=== PATIENT | female | born 1975 | race Caucasian/White ===

== ENCOUNTER → 2018-07-12 11:38 | Outpatient (CLI) | payer OTHER, SELFPAY ==
[2018-07-13 09:00] LABS: Cancer Antigen 125 32.9 U/mL (0.0-38.1)
== END ==
PROVIDERS: Visit Provider Obstetrics & Gynecology
DX: N83.209 Unspecified ovarian cyst, unspecified side (principal)
CPT/HCPCS: 36415; 86304

== ENCOUNTER 2018-09-17 08:30 | Inpatient (IN) | payer OTHER, SELFPAY ==
[2018-09-12 17:49] LABS: Hematocrit 43.6 % (37-47); Hemoglobin 15.1 g/dl (12.0-15.0); Mean Corp Hgb Conc 34.6 g/gl (32-36); Mean Corpuscular Hgb 30.3 pg (27.0-32.0); Mean Corpuscular Volume 87.4 fL (81-99); Mean Platelet Vol. 10.4 fl (6.2-12.0); Platelet Count 288 K/mm3 (150-450); RBC Distribution Width CV 12.3 % (11.6-14.6); RBC Distribution Width SD 38.8 fl (35.1-43.9); Red Blood Count 4.99 M/mm3 (4.2-5.4); White Blood Count 9.7 K/mm3 (4.4-11.0)
[2018-09-12 17:54] LABS: Scan Indicated on CBC? Y/N NO
[2018-09-12 18:04] LABS: International Normalized Ratio 1.1; Prothrombin Time (Protime)PT. 14.5 SECONDS (11.7-14.9)
[2018-09-12 18:05] LABS: Partial Thromboplast Time 30.6 Seconds (24.1-36.2)
[2018-09-12 18:20] LABS: Creatinine, Serum 0.64 mg/dL (0.55-1.02); EST Glomerular Filtration Rate 106 mL/min (>60); Est Glom Filt Rate - Afr Amer 128 mL/min (>60)
[2018-09-12 18:26] LABS: Pregnancy, Serum, hCG Quali. NEGATIVE Negative (0-9 Nonpreg)
[2018-09-17] VITALS (12 sets, daily range): BP systolic 106–134; BP diastolic 52–83; PULSE 69–120; RESP 16–18; TEMP 36.4–37; O2SAT 94–100; BMI 38.5; BMI 38.4
--- NOTE | 2018-09-17 | HYST_PTH ---
PATIENT: NIKIA MAK LOC: MS3 U#:[id number] AGE/SX: 43/F ROOM: MS318 RE09/17/[address]: Dr. Kaiden Dan MD : 1975 BED: 1 DIS: 09/19/2018 SPEC #: [id number] RECD: 09/17/18 14:43 STATUS: BARBARA RETati #: [id number] ANAM: 09/17/18 00:[address]: Kaiden Dan DEPT: SURGICAL PATHOLOGY RECD BY: Daryl Ruiz ENTERED: 09/17/18 14:44 SP TYPE: HYSTERECT OTHR DR: Dr. Kaiden Sweet MD Tissues: Uterus, NOS Procedures: Surgery Specimen Level V HEADER OPERATION: Total abdominal hysterectomy, bilateral salpingectomy, ERAS PRE-OP DIAGNOSIS: Leiomyoma TISSUE SUBMITTED: Uterus, cervix, bilateral fallopian tubes, fibroid MICROSCOPIC DIAGNOSIS Uterus, cervix, bilateral fallopian tubes and fibroid, total abdominal hysterectomy and bilateral salpingectomy: Cervix - chronic cystic cervicitis. Endometrium - proliferative endometrium. Myometrium - leiomyomas, intramural and subserosal (largest measuring 18 cm in greatest dimension). Bilateral fallopian tubes - no pathologic diagnosis. See comment. SJ:jessie 09/18/18 COMMENT The largest intramural leiomyoma also show focal calcification. The detached leiomyoma shows focal area of hyalinization. MICROSCOPIC DESCRIPTION Slides are reviewed. GROSS DESCRIPTION Received in fixative is one container labeled with the patient's name and designated uterus, cervix, bilateral fallopian tubes and fibroid. The specimen consists of a hysterectomy specimen consisting of uterus with cervix, attached bilateral fallopian tubes and detached nodular mass. The uterus with cervix and detached nodular mass weighs in aggregate 3150 gm. The serosal surface is hennessy, glistening and a few subserosal nodules are noted. The ectocervical mucosa is unremarkable. The external os is oval in contour. The uterus with cervix measures 18 cm transversely, 26 cm from fundus to cervix and 11 cm from anterior to posterior cervix. The endocervical canal measures 6 cm in length and the endocervical mucosa is hennessy, glistening and unremarkable. The uterus is distorted so anterior-posterior surface cannot be properly oriented. The endometrial cavity is compressed to one side and measures 7?cm in length and up to 3 cm in width. The endometrium is hennessy, glistening and focally congested without any mass lesion and measures 0.1 cm in thickness. Sections of the uterine wall reveal multiple intramural and subserosal nodular masses. The largest intramural mass measures 13 cm in greatest dimension. The largest subserosal mass measures 2.5 cm in greatest dimension. Also present in the container is a detached nodular mass measuring 18 cm in greatest dimension. The uninvolved uterine wall measures up to 4 cm in thickness. Sections of these masses reveal hennessy whorled cut surfaces without areas of hemorrhage, necrosis or cystic degeneration. Sections of the largest nodular mass reveal focally edematous and smooth cut surfaces. The fallopian tubes could not be oriented due to distortion of uterus. One of the fallopian tube measures 8 cm in length and 0.7 cm in diameter. The fimbrial end is identified. Sections reveal unremarkable cut surfaces. The second fallopian tube measures 8 cm in length and 0.5 cm in diameter. The fimbrial end is identified. Sections reveal unremarkable cut surfaces. Time Buyer sections are submitted in 17 cassettes as follows: 1 & 2 - cervix, 3-6 - uterine wall including endometrium, 7 - smaller subserosal nodular masses, 8-10 - largest intramural mass, 11-15 - detached nodular mass, 16 & 17 - bilateral fallopian tube with each cassette containing one fallopian tube. / JOEY:jessie 09/17/18 TC:1 CPT: 94856
[2018-09-17 08:56] LABS: Internal QC Validated? YES +Cl - CLEAR BKGD; Pregnancy, Urine Negative Negative
[2018-09-17] MEDS: Gabapentin 600 MG Tablet PO (09:22)
[2018-09-17] MEDS: Acetaminophen 500 MG Tablet 1000 MG PO ×2 (09:22→16:27)
[2018-09-17] MEDS: Scopolamine 1mg/72hr Patch 1 PATCH TRANSDERM. (09:23)
[2018-09-17 09:35] LABS: Bedside Glucose 76 mg/dL (70-110)
[2018-09-17] MEDS: Lidocaine/D5W 2,000 MG/250 ML IV.SOLN 30.51 MG IV (10:30)
--- NOTE | 2018-09-17 10:32 | OP.PCM_ITS ---
Report of Operation Date of Procedure: 09/17/18 Pre-Operative Diagnosis: Large Uterine Fibroids Post-Operative Diagnosis: Large Uterine Fibroids Surgery/Procedure Performed:: Total Abdominal Hysterectomy and Bilateral Salpingectomy Description of Surgical Findings:: 30 cm fibroid uterus with normal-appearing fallopian tubes and ovaries. conference services manager: Lefty Campbell Type of Anesthesia:: General Anesthesiologist: Juan Ruelas Specimen's removed: Uterus and bilateral fallopian tubes Drains: Asif to straight drain Estimated Blood Loss (mL): 400 cc Fluids Replaced: Crystalloid Description of Procedure: Indications: This is a 43-year-old patient G0who his been having problems with large uterine fibroids. Given this the patient desires that we proceed with the above procedure. She has been counseled regarding the risk and indications of this procedure including the possibility of bleeding, infection, and injury to surrounding structures such as bowel bladder. All questions were answered. Procedure: Patient was taken to the operating room where after induction of general anesthesia she was prepped and draped in the usual sterile fashion. A Asif catheter was placed. The abdomen was entered through a vertical incision and peritoneal cavity was entered bluntly. Extremely large uterine fibroids were encountered. There was a pedunculated fibroid that was approximately 15 cm off the fundus of the uterus. The base was ligated with 0 Vicryl suture and this fibroid was removed over the top of the lower uterus and fibroid. Round ligaments were identified and ligated with 0 Vicryl suture. Infundibulopelvic ligaments were ligated. A bladder flap was developed and progressive bites were then taken down on either side of the uterine cervix ligating each pedicle with 0 Vicryl suture. Final bites across the vaginal cuff incorporated the uterosacral ligaments into the vaginal cuff using 0 Vicryl suture and two [id number]-[id number]-lmiil sutures were placed across the vaginal cuff. Potter retractor was placed. Vaginal cuff and pelvic sidewall pedicles were oversewn where necessary to achieve hemostasis. Peristalsis of the right ureter was noted. Pelvis was copiously irrigated removing all clot. FloSeal was used across the vaginal cuff to help with some oozing in this area. Noam retractor was removed and rectus abdominis muscles were reapproximated in the midline with running 0 Vicryl suture. 0 PDS strata fix was used to close the fascia in a running fashion and subcutaneous tissue was copiously irrigated with saline solution before closing with 3-0 Vicryl suture. 4-0 Vicryl interrupted sutures were also placed to reapproximate the skin edges and closer vicinity. 3-0 Monocryl suture was then used in running fashion to reapproximate skin edges and Steri-Strips placed across the incision. Patient tolerated the procedure well was taken to recovery room in satisfactory condition; sponge instrument and needle counts were all reportedly correct. Estimated blood loss for the case was 250 cc. Cefotan 2 g IV was given prior to beginning the operative procedure. There were no apparent complications of the surgery. Specimen to pathology was uterus and bilateral fallopian tubes. Grafts/Implants Used: None - Complications None - Admit VTE Documentation VTE Present on Admission: Yes VTE Mechan Device Prophylaxis: SCD's VTE Pharm Prophylaxis ordered?: Yes
--- NOTE | 2018-09-17 10:33 | DCINST_ITS ---
Discharge Diet: No Restrictions Discharge Activity: Return to Normal Activity - do what you feel comfortable, but do not over do it. You may climb stairs, just use caution and hold the railing., May Not Drive - for a few days or while taking narcotic pain medications., May Shower, May Take a Tub Bath May resume sexual activity in: 6 weeks - nothing in the vagina. Lifting Restrictions: 25 pounds for 6 weeks. Call your doctor if your incision/area has: Continuous Slow Oozing, Sudden Increased Bleeding, Increased Pain/ Swelling, Increased Redness, Foul Smelling Discharge Call your doctor if you observe: Fever of 101 or Higher, Inability to urinate, Inability to have a bowel movement, Using more than one pad per hour, - - Some vaginal bleeding may be noted for up to 4-8 weeks. Cleanse incision/area with: - - Let the soapy water run over your incision, rinse and pat dry. Additional Dressing/Incision Instructions:: The white strips (Steri Strips) on your incision will fall off on their own. Allergies/Adverse Reactions: Allergies Penicillins [PCN] Allergy (Verified 09/10/18 11:02) Rash Medications to take at Discharge Cholecalciferol (Vitamin D3) [Vitamin D3] 5,000 unit PO QODAY 09/10/18 Docusate Sodium [Colace] 100 mg PO BID PRN PRN #60 cap 09/17/18 Oxycodone [Oxyir] 5 mg PO Q6H PRN PRN 7 Days #20 tab 09/17/18 The following prescriptions were given: Oxycodone [Oxyir] 5 mg PO Q6H PRN PRN 7 Days #20 tab PRN Reason: Severe Pain (-08/08) Docusate Sodium [Colace] 100 mg PO BID PRN PRN #60 cap PRN Reason: Constipation Primary Care Physician: Kaiden Sweet [Primary Care Provider] - Test Results: Test results from this visit will be discussed in further detail at your follow- up appointment, if applicable. Please Follow Up With: Kaiden Dan MD - [phone] When: in 2 weeks, please call to make an appointment.
[2018-09-17] MEDS: Ketorolac 30 MG/ML Syringe IV ×2 (12:04→21:27)
[2018-09-17] MEDS: Dextrose 5%-Lactated Ringers 1,000 ML 150 ML IV (18:14)
[2018-09-17] MEDS: Enoxaparin 30 MG/0.3 ML Syringe SC (18:15)
[2018-09-17] MEDS: oxyCODONE 5 MG Tablet PO (18:18)
[2018-09-17] MEDS: Ondansetron 4 MG/2 ML Vial IV (18:19)
[2018-09-18] MEDS: Dextrose 5%-Lactated Ringers 1,000 ML 150 ML IV (01:20)
[2018-09-18 03:15] VITALS: BP 119/57; PULSE 115; RESP 14; TEMP 36.9; O2SAT 92
[2018-09-18] MEDS: Ketorolac 30 MG/ML Syringe IV ×4 (03:26→20:14)
[2018-09-18 06:52] LABS: Hematocrit 35.4 % (37-47); Hemoglobin 11.7 g/dl (12.0-15.0); Mean Corp Hgb Conc 33.1 g/gl (32-36); Mean Corpuscular Hgb 29.8 pg (27.0-32.0); Mean Corpuscular Volume 90.1 fL (81-99); Mean Platelet Vol. 10.9 fl (6.2-12.0); Platelet Count 255 K/mm3 (150-450); RBC Distribution Width CV 12.2 % (11.6-14.6); Red Blood Count 3.93 M/mm3 (4.2-5.4); White Blood Count 12.7 K/mm3 (4.4-11.0)
[2018-09-18 06:59] LABS: Scan Indicated on CBC? Y/N NO
[2018-09-18 07:07] LABS: Creatinine, Serum 0.79 mg/dL (0.55-1.02); EST Glomerular Filtration Rate 84 mL/min (>60); Est Glom Filt Rate - Afr Amer 101 mL/min (>60); Estimated Creatinine Clearance 77.66 ml/min
[2018-09-18 08:33] VITALS: BP 126/67; PULSE 108; RESP 18; TEMP 37.1; O2SAT 96
[2018-09-18 08:42] VITALS: O2SAT 95
--- NOTE | 2018-09-18 08:58 | PCM.PN.OB ---
Subjective: Patient without complaints. Tolerating diet well. Denies any orthostatic changes. Minimal vaginal bleeding. Nausea resolving. Denies flatus. - Physical Exam Vital Signs Temp Pulse Resp BP Pulse Ox 98.7 F 108 H 18 126/67 H 95 09/18/18 08:33 09/18/18 08:33 09/18/18 08:33 09/18/18 08:33 09/18/18 08:42 Oxygen Flow Rate (L/min) 6 Oxygen Delivery Method Room Air Weight: 224 lb Body Mass Index (BMI) 38.4 Intake and Output for Last 24 Hours 09/16/18 09/17/18 09/18/18 23:59 23:59 23:59 Intake Total 3010 / 3010 2544 / 2544 Output Total 490 / 490 4600 / 4600 Balance 2520 / 2520 -2055 / -2055 Laboratory Tests Past 24 Hrs 09/18/18 09/18/18 06:05 06:05 WBC 12.7 H RBC 3.93 L Hgb 11.7 L Hct 35.4 L MCV 90.1 MCH 29.8 MCHC 33.1 RDW 12.2 RDW Differential 39.0 Plt Count 255 MPV 10.9 Creatinine 0.79 Estim Creat Clear Calc 77.66 Est GFR (MDRD) Af Amer 101 Est GFR (MDRD) Non-Af 84 POC Glucose 09/17/18 09:19 POC Glucose 76 Wound is clean, dry, intact. Good urine output. Tachycardia resolving. Hemoglobin and creatinine okay. Medical Necessity - Tobacco Use Smoking Status: Never smoker Assessment/Plan Doing well postoperative day #1 status post ANAHI/bilateral salpingectomy. Continuing present care.
[2018-09-18] MEDS: oxyCODONE 5 MG Tablet PO (11:42)
[2018-09-18] MEDS: 0.9% NaCl Peripheral Flush Adult/Peds IV (15:16)
[2018-09-18 15:18] VITALS: BP 146/91; PULSE 101; RESP 18; TEMP 36.7; O2SAT 98
--- NOTE | 2018-09-18 16:25 | CASEMGMT ---
KALIE RAY INITIAL ASSESSMENT D/C PLAN: Home Face to Face with patient for initial transition planning/care coordination assessment. KALIE RAY introduced self and role at [facility]. Pt sitting up in recliner chair visiting with her mother in the room. Pt agreeable to assessment and all questions answered approrpriately. Care providers, pharmacy, and demographics verified. PCP: Kee Specialists: none Preferred Pharmacy: [facility], [facility] Retail on day of discharge only Insurance: [employer] Prescription Benefit: Yes Living Will/HPOA: Does not have either. Declines further information. LNOK: Mother Living Arrangements: Lives alone in one-story apartment. No stairs to enter. Independent with all ADL's, care, and home mgmt tasks. Transportation: Pt drives. Mother and brothers able to assist if needed. DME: Denies using any DME and denies needs. HHC: No needs identified. Pt wishes to return home. Denies discharge planning needs and denies having any questions. Advised to ask for CM if has any questions/concerns/needs. Pt voices understanding. CM to follow for any further discharge planning needs that may arise. Abelino PEREZ RN, CM
[2018-09-18 21:57] VITALS: BP 129/57; PULSE 108; RESP 20; TEMP 36.8; O2SAT 94
[2018-09-19 03:16] VITALS: BP 127/75; PULSE 106; RESP 18; TEMP 37.3; O2SAT 94
[2018-09-19] MEDS: Ketorolac 30 MG/ML Syringe IV (03:19)
[2018-09-19] MEDS: 0.9% NaCl Peripheral Flush Adult/Peds IV (03:20)
[2018-09-19 07:45] VITALS: O2SAT 95
[2018-09-19 08:52] VITALS: BP 124/86; PULSE 96; RESP 16; TEMP 37.1; O2SAT 93
[2018-09-19] MEDS: Loratadine 10 MG Tablet PO (09:05)
[2018-09-19] MEDS: Ketorolac 10 MG Tablet PO (09:05)
--- NOTE | 2018-09-19 09:49 | PCM.PN.OB ---
Subjective: Patient without complaints. Tolerating diet well. Pain well controlled. Minimal vaginal bleeding. Positive flatus. Ready to go home. - Physical Exam Vital Signs Temp Pulse Resp BP Pulse Ox 98.7 F 96 16 124/86 H 93 09/19/18 08:52 09/19/18 08:52 09/19/18 08:52 09/19/18 08:52 09/19/18 08:52 Oxygen Flow Rate (L/min) 6 Oxygen Delivery Method Room Air Weight: 224 lb Body Mass Index (BMI) 38.4 Intake and Output for Last 24 Hours 09/17/18 09/18/18 09/19/18 23:59 23:59 23:59 Intake Total 3010 / 3010 3524 / 3524 600 / 600 Output Total 490 / 490 6700 / 6700 1800 / 1800 Balance 2520 / 2520 -3176 / -3176 -1200 / -1200 Wound is clean, dry, intact. Good urine output. Medical Necessity - Tobacco Use Smoking Status: Never smoker Assessment/Plan Doing well postoperative day #2 status post total abdominal hysterectomy and bilateral salpingectomy. Will release to home with routine instructions.
== END 2018-09-19 11:48 | disposition home or self-care (01) | DRG 743 ==
PROVIDERS: Anesthesiology; Admitting Provider Obstetrics & Gynecology; Family Provider Family Medicine; PCP Family Medicine; Referring Provider Obstetrics & Gynecology; Visit Provider Obstetrics & Gynecology
PROC: 0UT90ZZ Resection of Uterus, Open Approach (ICD-10-PCS; principal; 2018-09-17 10:20)
DX: D25.9 Leiomyoma of uterus, unspecified (principal)
CPT/HCPCS: 36415; 81025; 82565; 82962; 84703; 85027; 85610; 85730; 86850; 86900; 88307; J7050; J7120; A4216; J2405

== ENCOUNTER → 2024-05-13 | Outpatient (CLI) | payer OTHER, SELFPAY ==
--- NOTE | 2024-05-13 09:54 | BI_ITS ---
MAMMOGRAPHY - BILATERAL SCREENING REASON FOR EXAM: Female, 49 years old. Routine annual screening examination. PERTINENT HISTORY: Non-contributory. TECHNIQUE: Digital bilateral breast thao (3D mammographic acquisition) in the CC and MLO projections. 2-D mediolateral oblique (MLO) and craniocaudad (CC) views of both breasts were obtained. CAD: Full Field Digital Mammography with Computer Added Detection was performed. COMPARISON: Comparison is made with prior outside examination dated May 08, 2018. FINDINGS: Breast Composition: The breasts are extremely dense, which lowers the sensitivity of mammography. There are no dominant masses or suspicious calcifications. Stable small benign appearing bilateral axillary lymph nodes. No other significant abnormalities are identified. There has been no significant change since the prior study. BI/SCRN MAMM (CAD)W/THAO BILAT IMPRESSION: Stable bilateral screening mammogram. Yearly follow-up mammogram recommended. (A) ASSESSMENT CATEGORY: BIRADS Category 2: Benign. A letter regarding these results will be sent to the patient by the facility within 30 days. Approximately 10% of breast cancers are not detected by mammography. A normal mammogram should not delay biopsy of a clinically suspicious abnormality. [id number] Electronically Signed: Bk Tello MD at 10:56 EDT ,
== END | disposition home or self-care (01) ==
LOC: OPBI 09:53
PROVIDERS: PCP Family Medicine
DX: Z12.31 Encounter for screening mammogram for malignant neoplasm of breast (principal)
CPT/HCPCS: 77063; 77067

== ENCOUNTER 2024-05-29 06:43 | Day surgery (SDC) | payer OTHER, SELFPAY ==
[2024-05-29] VITALS (8 sets, daily range): BP systolic 105–145; BP diastolic 68–81; PULSE 76–97; RESP 16–20; TEMP 36.2–36.3; O2SAT 94–96; BMI 45.3
[2024-05-29] MEDS: Lactated Ringers 1,000 ML 15 ML IV (07:19)
--- NOTE | 2024-05-29 07:39 | PRE.ANES_ITS ---
ASA Classification* ASA Classification ASA Classification: 2 Assessment & Plan Anesthesia* Anesthesia Assessment Anesthesia Assessment: Discussed sedation and/or anesthesia options, risks, benefits, and alternatives with patient/parents/legal guardian/POA. Questions invited. The patient/parents/legal guardian/POA seems to understand and agrees to proceed with anesthesia plan. Reviewed the physical assessment, medical history, allergy history and patient home medications list prior to surgery/procedure/anesthetic and documented any changes. Performed airway and anesthesia risk assessments. Anesthesia Type Anesthesia Type: MAC Anesthesia Focused Assessment* Temperature: 97.4 F Pulse Rate: 97 Blood Pressure: 145/81 Respiratory Rate: 20 Pulse Ox: 96 Airway Assessment Mouth opens: >3 cm Mallampati Score: II Focused Labs Anesthesia Preop lab: CBC WBC 12.7 K/mm3 (4.4-11.0) H 09/18/18 06:05 RBC 3.93 M/mm3 (4.2-5.4) L 09/18/18 06:05 Hgb 11.7 g/dl (12.0-15.0) L 09/18/18 06:05 Hct 35.4 % (37-47) L 09/18/18 06:05 Plt Count 255 K/mm3 (150-450) 09/18/18 06:05 CHEMISTRY Creatinine 0.79 mg/dL (0.55-1.02) 09/18/18 06:05 POC Glucose 76 mg/dL (70-110) 09/17/18 09:19 COAG PT 14.5 SECONDS (11.7-14.9) 09/12/18 17:34 Urine Test Negative Negative 09/17/18 08:45 Pre-Assessment Diagnosis/Proposed Procedure Planned Operative Procedure(s): COLONOSCOPY-OA Anesthesia History 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 When Was Last Pacemaker Check QUESTION #4 FULL TEXT: You/Your Family Experience fever (hyperthermia) with Anesthesia Last Oral Intake Last Oral intake: Last Oral Intake NPO since 04:00 05/29/24 07:11 Meds taken in AM with sips of No 05/29/24 07:11 water? Meds patient instructed to take am of surgery PONV PONV - cambering machine operator: PONV - cambering machine operator Female Yes 05/27/24 09:30 HX of Motion Sickness No 05/27/24 09:30 HX of N/V After Surgery No 05/27/24 09:30 Non-Smoker Yes 05/27/24 09:30 Duration of Surgery greater No 05/27/24 09:30 than 60 minutes Number of Risk Factors 2 05/27/24 09:30 PONV Score Moderate Risk 05/27/24 09:30 Height & Weight Height & Weight: Anesthesia: Height & Weight Height 5 ft 4 in 05/29/24 07:11 Weight: 120 kg 05/29/24 07:11 Body Mass Index (BMI) 45.3 05/29/24 07:11 Respiratory Assessment Respiratory Assessment - cambering machine operator: Respiratory Tract Infection Hx - cambering machine operator Hx Respiratory Tract Infection No 05/27/24 09:30 STOP Sleep Apnea STOP Sleep Apnea - cambering machine operator: STOP Sleep Apnea - cambering machine operator Hx Hypertension No 05/27/24 09:30 Hx Sleep Apnea No 05/27/24 09:30 CPAP BIPAP Do you snore loudly (louder No 05/27/24 09:30 than talking or can be heard Do you often feel tired/ No 05/27/24 09:30 fatigued/ sleepy during daytime? Has anyone observed you stop No 05/27/24 09:30 breathing during sleep? STOP Results Negative 05/27/24 09:30 QUESTION #5 FULL TEXT : Do you snore loudly (louder than talking or can be heard through closed doors)? 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 Specify any problems Hx of Preganancy in last 3 No 05/27/24 09:30 Months Nurse Filling Out Transfusion VCHRISTIN 05/27/24 09:30 & Questions: Date: 05/27/24 05/27/24 09:30 Time: 09:30 05/27/24 09:30 Patient unable to answer at this time (ie. confused, unrespo /Reproduction History /Reproductive History - cambering machine operator: /Reproductive Hx- cambering machine operator Hx Now Gestational Age (in weeks): EDC: Hx Hx Para Hx Section SAB Active Medications Active Medications: Current Medications Generic Name Dose Route Start Last Admin Trade Name Freq PRN Reason Stop Dose Admin Lactated Ringer's 1,000 mls @ 15 mls/hr 05/29/24 07:00 05/29/24 07:19 IV 15 mls/hr .Q48H SITA Administration PFSH Medical History Wears glasses Post-menopausal Non-smoker History of irregular heartbeat Hx of lymphoma Family history of malignant neoplasm of colon in relative diagnosed when younger than 50 years of age Home Medications ?Medication ?Instructions ?Recorded ?Last Taken ?Type cholecalciferol (vitamin D3) 125 5,000 unit PO DAILY SUPPLEMENT 09/10/18 Unknown History mcg (5,000 unit) capsule ascorbate calcium (vitamin C) 500 500 mg PO DAILY 05/01/24 Unknown History mg tablet cetirizine 10 mg tablet 10 mg PO PRN PRN allergy symptoms 05/01/24 Unknown History fluticasone propionate 50 2 spray intranasal DAILY 05/01/24 Unknown History mcg/actuation nasal spray,suspension (Flonase Allergy Relief) lactobacillus comb no.10 20 20,000 mmu cells PO DAILY 05/01/24 Unknown History billion cell capsule (Probiotic) magnesium oxide 400 mg PO DAILY 05/01/24 Unknown History mecobalamin (vitamin B12) 1,000 1,000 mcg PO DAILY 05/01/24 Unknown History mcg chewable tablet Allergy/AdvReac Type Severity Reaction Status Date / Time Penicillins (PCN) Allergy Rash Verified 05/29/24 07:08 Family History Brother Colon cancer Mother Aortic valve replaced Heart disease Father Hypertension Surgical History Hx of hysterectomy Social History 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
--- NOTE | 2024-05-29 08:00 | COLBX_PTH ---
PATIENT: NIKIA MAK LOC: EN U#:[id number] AGE/SX: 49/F ROOM: RE05/29/[address]: Dr. Scar Johnson DO : 1975 BED: DIS: 05/29/2024 SPEC #: [id number] RECD: 05/29/24 10:42 STATUS: BARBARA RETati #: [id number] ANAM: 05/29/24 08:[address]: Scar Johnson DEPT: SURGICAL PATHOLOGY RECD BY: Amira Swanson ENTERED: 05/29/24 11:44 SP TYPE: COLON BX OTHR DR: MAYCO Mc Tissues: A - Cecum, NOS B - COLON BIOPSY C - Descending colon Procedures: Surgery Specimen Level IV HEADER OPERATION: Colonoscopy, biopsy, polypectomy PRE-OP DIAGNOSIS: Encounter for screening for malignant neoplasm of colon TISSUE SUBMITTED: A- Cecal biopsy, B- Splenic flexure polyp, C- Descending polyp MICROSCOPIC DIAGNOSIS A. Cecum, biopsy: Mild acute enteritis. Fibrin purulent material. See comment. B. Colonic polyp at splenic flexure, biopsy: Polypoid fragment of benign colonic mucosa. See comment. C. Descending colon polyp, biopsy: Fragments of tubular adenoma. LEEANN/ 05/30/2024 COMMENT A. Clinical correlation is suggested. B. Neither hyperplastic nor adenomatous change is identified. Clinical correlation is suggested. MICROSCOPIC DESCRIPTION Slides are reviewed. GROSS DESCRIPTION A. Received in fixative is one container labeled with the patient's name and designated Cecal biopsy. The specimen consists of multiple irregular fragments of light hennessy soft tissue that in aggregate measure 1.0 x 0.3 x 0.1 cm. The specimen is totally submitted in one cassette. B. Received in fixative is one container labeled with the patient's name and designated Splenic flexure polyp. The specimen consists of multiple irregular fragments of light hennessy soft tissue that in aggregate measure 0.5 x 0.2 x 0.1 cm. The specimen is totally submitted in one cassette. C. Received in fixative is one container labeled with the patient's name and designated Descending polyp. The specimen consists of multiple irregular fragments of light hennessy soft tissue that in aggregate measure 0.7 x 0.5 x 0.1 cm. The specimen is totally submitted in one cassette. LEEANN/ 05/29/2024 TC:5 CPT:54587h0
--- NOTE | 2024-05-29 08:00 | COLBX_PTH ---
PATIENT: NIKIA MAK LOC: EN U#:[id number] AGE/SX: 49/F ROOM: RE05/29/[address]: Dr. Scar Johnson DO : 1975 BED: DIS: 05/29/2024 SPEC #: [id number] RECD: 05/29/24 10:42 STATUS: BARBARA RETati #: [id number] ANAM: 05/29/24 08:[address]: Scar Johnson DEPT: SURGICAL PATHOLOGY RECD BY: Amira Swanson ENTERED: 05/29/24 11:44 SP TYPE: COLON BX OTHR DR: MAYCO Mc Tissues: A - Cecum, NOS B - COLON BIOPSY C - Descending colon Procedures: Surgery Specimen Level IV HEADER OPERATION: Colonoscopy, biopsy, polypectomy PRE-OP DIAGNOSIS: Encounter for screening for malignant neoplasm of colon TISSUE SUBMITTED: A- Cecal biopsy, B- Splenic flexure polyp, C- Descending polyp MICROSCOPIC DIAGNOSIS A. Cecum, biopsy: Mild acute interitis. Fibrin purulent material. See comment. B. Colonic polyp at splenic flexure, biopsy: Polypoid fragment of benign colonic mucosa. See comment. C. Descending colon polyp, biopsy: Fragments of tubular adenoma. LEEANN/ 05/30/2024 COMMENT A. Clinical correlation is suggested. B. Neither hyperplastic nor adenomatous change is identified. Clinical correlation is suggested. MICROSCOPIC DESCRIPTION Slides are reviewed. GROSS DESCRIPTION A. Received in fixative is one container labeled with the patient's name and designated Cecal biopsy. The specimen consists of multiple irregular fragments of light hennessy soft tissue that in aggregate measure 1.0 x 0.3 x 0.1 cm. The specimen is totally submitted in one cassette. B. Received in fixative is one container labeled with the patient's name and designated Splenic flexure polyp. The specimen consists of multiple irregular fragments of light hennessy soft tissue that in aggregate measure 0.5 x 0.2 x 0.1 cm. The specimen is totally submitted in one cassette. C. Received in fixative is one container labeled with the patient's name and designated Descending polyp. The specimen consists of multiple irregular fragments of light hennessy soft tissue that in aggregate measure 0.7 x 0.5 x 0.1 cm. The specimen is totally submitted in one cassette. LEEANN/ 05/29/2024 TC:5 CPT:81371e9
--- NOTE | 2024-05-29 08:10 | HP.PCM_ITS ---
[facility] - General General Date of Admission: 05/29/24 Date of Service: 05/29/24 Chief Complaint: Screening colonoscopy [facility] Narrative NIKIA MAK, is a 49 F who presents today for screening colonoscopy. She does not have any abdominal pain. She denied having cramping. She does not have any chest pain or shortness of breath. She has a allergy to penicillin. She does not take any medicines on a daily basis. She has never had a colo noscopy in the past. [facility] Medical History Wears glasses Post-menopausal Non-smoker History of irregular heartbeat Hx of lymphoma Family history of malignant neoplasm of colon in relative diagnosed when younger than 50 years of age Home Medications ?Medication ?Instructions ?Recorded ?Last Taken ?Type cholecalciferol (vitamin D3) 125 5,000 unit PO DAILY SUPPLEMENT 09/10/18 Unknown History mcg (5,000 unit) capsule ascorbate calcium (vitamin C) 500 500 mg PO DAILY 05/01/24 Unknown History mg tablet cetirizine 10 mg tablet 10 mg PO PRN PRN allergy symptoms 05/01/24 Unknown History fluticasone propionate 50 2 spray intranasal DAILY 05/01/24 Unknown History mcg/actuation nasal spray,suspension (Flonase Allergy Relief) lactobacillus comb no.10 20 20,000 mmu cells PO DAILY 05/01/24 Unknown History billion cell capsule (Probiotic) magnesium oxide 400 mg PO DAILY 05/01/24 Unknown History mecobalamin (vitamin B12) 1,000 1,000 mcg PO DAILY 05/01/24 Unknown History mcg chewable tablet Allergy/AdvReac Type Severity Reaction Status Date / Time Penicillins (PCN) Allergy Rash Verified 05/29/24 07:08 Family History Brother Colon cancer Mother Aortic valve replaced Heart disease Father Hypertension Surgical History Hx of hysterectomy Social History current occupational status: employed 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 Smoking Status: Never smoker alcohol intake: current alcohol intake frequency: holidays/special occasions only substance use type: does not use ROS Review of Systems ROS Unobtainable: other Constitutional Constitutional: Denies fatigue, fever(s), poor appetite, weight gain or weight loss ENT HEENT: Denies mouth lesions Cardiovascular Cardiovascular: Denies abdominal bloating, abdominal edema or abdominal pain Respiratory/Chest Respiratory/Chest: Denies change in mental status, change in phlegm color, chest congestion or chest tightness Gastrointestinal Gastrointestinal: Denies belching, bloating, change in bowel habits, change in stool character, chewing difficulty, coffee ground emesis, constipation, cramping, diarrhea, dyspepsia, dysphagia, early satiety, excessive flatus, fecal incontinence, heartburn, hematemesis, hematochezia, hemorrhoids, loose stools, melena, nausea, odynophagia, rectal bleeding, tenesmus, vomiting or weight changes Genitourinary Genitourinary: Denies abdominal discomfort, burning urination or itching Musculoskeletal Musculoskeletal: Reports as per HPI; Denies muscle weakness or myalgias Integumentary Integumentary: Denies jaundice Neurologic Neurologic: Denies lack of coordination or weakness Psychiatric Psychiatric: Denies confusion, depression, memory loss, mood swings, paranoia or suicidal ideation Endocrine Endocrinology: Denies systems reviewed and no addt'l complaints, except as documented Hematologic/Lymphatic Hematologic/Lymphatic: Denies anemia, easy bleeding, easy bruising or lymphadenopathy Allergic/Immunologic Allergic/Immunologic: Denies systems reviewed and no addt'l complaints, except as documented Vital Signs Vital Signs Vital Signs: 05/29/24 07:10 05/29/24 07:11 05/29/24 07:39 Temperature 97.4 F L 97.4 F L Temperature Source Temporal Pulse Rate 97 97 Respiratory Rate 20 H 20 H Respiratory Pattern Normal Blood Pressure 145/81 H 145/81 H Blood Pressure Mean 102 Blood Pressure Source Monitor Blood Pressure Position Semi-Fowlers Blood Pressure Location Left Arm Pulse Ox 96 96 Oxygen Delivery Method Room Air Weight Weight: 264 lb 8.875 oz Body Mass Index (BMI) 45.3 Physical Exam Const alert General Appearance: cooperative Orientation / Consciousness: oriented to person HEENT hearing grossly normal bilaterally Head and Scalp: normal to inspection Face and Sinus: face symmetric Nose: external nose normal Mouth: oral and palatal mucosa normal Eyes conjunctivae normal General Eye: normal appearance of both eyes Neck full ROM General: normal visual inspection Lymph Lymphatic: no lymphadenopathy noted Chest inspection of chest normal and palpation of chest normal Chest: symmetrical chest wall rise Resp normal respiratory effort Effort and Inspection: able to speak in complete sentences Cardio regular rate GI non-distended Percussion: normal to percussion Rectal Exam: deferred Neuro Speech: speech normal Gait (Neuro): normal gait Assessment & Plan Assessment/Plan (1) Encounter for screening for malignant neoplasm of colon: PLAN: 49-year-old will undergo screening colonoscopy. She was explained alternatives, risk, benefits including not withstanding bleeding, infection, sepsis, perforation, need for emergent urgent . She will have an ASA of 3.
--- NOTE | 2024-05-29 08:45 | PCM.POST.ANE ---
Anesthesia: Postop Eval I Current Vital Signs Temperature: 97.2 F Pulse Rate: 87 Blood Pressure: 105/68 Respiratory Rate: 16 Pulse Ox: 96 Oxygen Delivery Method: Room Air Assessment Airway patent: Yes Spontaneous unlabored respirations: Yes Mental status: Awake and Calm nausea: No Vomiting: No Anesthesia Complication: No Fluid Hydration Crystalloid volume administer (ml): 600 Total IV fluid infused: 600 Progress Note Anesthesia document: Postop Eval 1 completed: Yes
--- NOTE | 2024-05-29 08:49 | OP.COLON_ITS ---
Patient Name: Balbina Law Procedure Date: 05/29/2024 8:11 AM Date of : 1975 Age: 49 Procedure: Colonoscopy Indications: Screening for colorectal malignant neoplasm Providers: Scar Johnson DO Referring MD: Scar Johnson DO Medicines: Monitored Anesthesia Care Patient Profile: This is a 49 year old female. Refer to note in patient chart for documentation of history and physical. Last Colonoscopy: none. The patient's first colonoscopy is today. Complications: No immediate complications. Procedure: Pre-Anesthesia Assessment: - Prior to the procedure, a History and Physical was performed, and patient medications and allergies were reviewed. The risks and benefits of the procedure and the sedation options and risks were discussed with the patient. All questions were answered and informed consent was obtained. Patient identification and proposed procedure were verified by the physician in the pre-procedure area. Mental Status Examination: alert and oriented. Airway Examination: normal oropharyngeal airway and neck mobility. Respiratory Examination: clear to auscultation. CV Examination: normal. Prophylactic Antibiotics: The patient does not require prophylactic antibiotics. Prior Anticoagulants: The patient has taken no anticoagulant or antiplatelet agents. After reviewing the risks and benefits, the patient was deemed in satisfactory condition to undergo the procedure. The anesthesia plan was to use monitored anesthesia care (MAC). Immediately prior to administration of medications, the patient was re-assessed for adequacy to receive sedatives. The heart rate, respiratory rate, oxygen saturations, blood pressure, adequacy of pulmonary ventilation, and response to care were monitored throughout the procedure. The physical status of the patient was re-assessed after the procedure. After I obtained informed consent, the scope was passed under direct vision. Throughout the procedure, the patient's blood pressure, pulse, and oxygen saturations were monitored continuously. The colonoscope was introduced through the anus and advanced to the cecum, identified by appendiceal orifice and ileocecal valve. The colonoscopy was performed without difficulty. The patient tolerated the procedure well. The quality of the bowel preparation was adequate. The ileocecal valve, appendiceal orifice, and rectum were photographed. Scope In: 8:17:13 AM Scope Withdrawal Time 0 hours 13 minutes 42 seconds Scope Out: 8:35:50 AM Total Procedure Duration Time 0 hours 18 minutes 37 seconds Findings: The perianal and digital rectal examinations were normal. A few small-mouthed diverticula were found in the recto-sigmoid colon and sigmoid colon. Two sessile polyps were found in the descending colon and splenic flexure. The polyps were 1 to 2 mm in size. These polyps were removed with a cold snare. Resection and retrieval were complete. Verification of patient identification for the specimen was done. Estimated blood loss was minimal. A single (solitary) thirteen mm ulcer was found in the cecum. No bleeding was present. Biopsies were taken with a cold forceps for histology. Verification of patient identification for the specimen was done. Estimated blood loss was minimal. Impression: - Diverticulosis in the recto-sigmoid colon and in the sigmoid colon. - Two 1 to 2 mm polyps in the descending colon and at the splenic flexure, removed with a cold snare. Resected and retrieved. - A single (solitary) ulcer in the cecum. Biopsied. Recommendation: - Discharge patient to home. - Resume previous diet. - Continue present medications. - Await pathology results. - Repeat colonoscopy in 5 years for surveillance. Procedure Code(s): --- Professional --- 79768, Colonoscopy, flexible; with removal of tumor(s), polyp(s), or other lesion(s) by snare technique 73551, 59, Colonoscopy, flexible; with biopsy, single or multiple CPT copyright 2021 [employer]. All rights reserved. The codes documented in this report are preliminary and upon janitor custodian review may be revised to meet current compliance requirements. Scar Johnson DO 05/29/2024 8:48:23 AM This report has been signed electronically. Number of Addenda: 0 Note Initiated On: 05/29/2024 8:11 AM
--- NOTE | 2024-05-29 08:49 | OP.CCLET_ITS ---
05/29/2024 Jose Mc Re : Colonoscopy procedure for Balbina Law Dear Freddie This procedure was performed on Wednesday, May 29, 2024. My impressions and recommendations are as follows: Impressions : - Diverticulosis in the recto-sigmoid colon and in the sigmoid colon. - Two 1 to 2 mm polyps in the descending colon and at the splenic flexure, removed with a cold snare. Resected and retrieved. - A single (solitary) ulcer in the cecum. Biopsied. Recommendations : - Discharge patient to home. - Resume previous diet. - Continue present medications. - Await pathology results. - Repeat colonoscopy in 5 years for surveillance. My findings are described in the full procedure note, which is enclosed. If I can be of further assistance, please feel free to contact me at . Sincerely, Scar Johnson, 05/29/2024 8:48:23 AM This report has been signed electronically.
--- NOTE | 2024-05-29 09:21 | PCM.POSTANE2 ---
Anesthesia Postop Eval I Sum Postop Eval Completion status Anesthesia document: Postop Eval 1 completed: Yes Anesthesia Postop Eval I Summary Anesthesia Postop Eval I Summary: Anesthesia Postop Eval I: Assessment Summary Airway patent Yes 05/29/24 08:47 [email or web address] Spontaneous unlabored Yes 05/29/24 08:47 [email or web address] respirations Mental status Awake,Calm 05/29/24 08:47 [email or web address] nausea No 05/29/24 08:47 [email or web address] Vomiting No 05/29/24 08:47 [email or web address] Anesthesia Postop Eval I: Fluid Summary Crystalloid volume administer 600 05/29/24 08:47 [email or web address] (ml) Colloids volume administered ( ml) Blood Product volume administered (ml) Total IV fluid infused 600 05/29/24 08:47 [email or web address] Anesthesia Postop Eval I: Summary Notes Anesthesia Complication No 05/29/24 08:47 [email or web address] Anesthesia Complication Comment: Post-operative progress note Anesthesia: Postop Eval II Evaluation Mental status: Awake Pain Level: 0 nausea: No Vomiting: No
== END 2024-05-29 09:22 | disposition home or self-care (01) ==
LOC: EN 06:45 → AC 06:47
PROVIDERS: Visit Provider Internal Medicine Gastroenterology
PROC: 0DJD8ZZ Inspection of Lower Intestinal Tract, Via Natural or Artificial Opening Endoscopic (ICD-10-PCS; CPT 45378; principal; 2024-05-29 07:55)
DX: Z12.11 Encounter for screening for malignant neoplasm of colon (principal); K57.30 Diverticulosis of large intestine without perforation or abscess without bleeding; D12.4 Benign neoplasm of descending colon; Z80.0 Family history of malignant neoplasm of digestive organs
CPT/HCPCS: 45385; 45380; 88305; J7120; J2405

== ENCOUNTER → 2024-06-13 | Outpatient (CLI) | payer OTHER, SELFPAY ==
[2024-06-13 11:54] LABS: Erythrocyte Sedimentation Rate 12 mm/hr (0-30)
[2024-06-13 11:57] LABS: Absolute Lymphocyte Count 2.76 X10^3/uL (0.83-4.51); Basophil# 0.09 X10^3/uL; Eosinophil# 0.24 X10^3/uL; Eosinophils% 2.8 % (0-5); Hematocrit 43.2 % (37-47); Hemoglobin 14.4 g/dL (12.0-15.0); Lymphocyte # 2.76 X10^3/ul (0.83-4.51); Lymphocyte % 31.8 % (19-41); Mean Corp Hgb Conc 33.3 g/dL (32-36); Mean Corpuscular Hgb 29.1 pg (27.0-32.0); Mean Corpuscular Volume 87.3 fL (81-99); Mean Platelet Vol. 10.4 fl (6.2-12.0); Monocyte# 0.56 X10^3/uL; Monocyte% 6.4 % (0-10); NRBC Flagged by Analyzer 0 % (0-5); Neutrophil # 5.02 X10^3/uL (2.7-7.7); Neutrophil % 57.8 % (47-70); Platelet Count 301 K/mm3 (150-450); RBC Distribution Width CV 12.7 % (11.6-14.6); RBC Distribution Width SD 39.8 fl (35.1-43.9); Red Blood Count 4.95 M/mm3 (4.2-5.4); White Blood Count 8.7 K/mm3 (4.4-11.0)
[2024-06-13 12:53] LABS: ALB/GLOB Ratio 0.9 RATIO (0.9-2.4); AST(SGOT) 14 U/L (15-37); Alanine Aminotransfer ALT/SGPT 24 U/L (13-56); Albumin, Serum 3.6 g/dL (3.2-5.0); Alkaline Phosphatase 95 U/L (45-117); Anion Gap 7 (5-15); BUN 10 mg/dL (7-18); BUN/Creat Ratio 14.8 RATIO (10-20); CRP 5.01 mg/L (0.0-3.0); Calcium,Total 9.3 mg/dL (8.5-10.1); Chloride 107 mmol/L (98-107); Creatinine, Serum 0.68 mg/dL (0.55-1.02); EST Glomerular Filtration Rate 98 mL/min (>60); Est Glom Filt Rate - Afr Amer 118 mL/min (>60); Globulin 3.8 g/dL (2.2-4.2); Glucose 114 mg/dL (74-106); LDH 191 U/L (84-246); Potassium 3.6 mmol/L (3.5-5.1); Protein, Total 7.4 g/dL (6.4-8.2); Sodium Level 139 mmol/L (136-145)
[2024-06-14 14:10] LABS: ANTINUCLEAR ANTIBODIES DIRECT Negative (Negative)
[2024-06-17 16:09] LABS: ACCA 13 units (0-90); ALCA 4 units (0-60); AMCA 16 units (0-100); Albumin 3.8 g/dL (2.9-4.4); Alpha-1-Globulins 0.2 g/dL (0.0-0.4); Alpha-2-Globulins 0.8 g/dL (0.4-1.0); Cytoplasmic Ab (C-ANCA) <1:20 titer (Neg:<1:20); Immunoglobulin A 244 mg/dL (87-352); Immunoglobulin G 1102 mg/dL (586-1602); Immunoglobulin M 43 mg/dL (26-217); PROEL- TOTAL PROTEIN 7.1 g/dL (6.0-8.5); Perinuclear Ab (P-ANCA) <1:20 titer (Neg:<1:20); gASCA 0 units (0-50)
== END | disposition home or self-care (01) ==
LOC: LAB 10:44
DX: K63.3 Ulcer of intestine (principal)
CPT/HCPCS: 80053; 82784; 83516; 83615; 84165; 85025; 85652; 86036; 86038; 86140; 86256; 86334; 86671